=== PATIENT | female | born 1990 | race Native Hawaiian/Other Pacific Islander ===

== ENCOUNTER 2016-07-06 08:38 | Emergency (ER) | payer BC, OTHER ==
[~2016-07-06] VITALS: Ht 160 cm; Wt 56.7 kg
[2016-07-06 08:55] VITALS: BP 87/40; TEMP 97.8
[2016-07-06 09:34] LABS: PLATELET COUNT 202 K/uL (152-353)
[2016-07-06 09:54] LABS: POTASSIUM 3.3 mmol/L (3.6-5.2); SODIUM 136 mmol/L (136-145)
== END 2016-07-06 20:51 | disposition other institution (70) ==
LOC: ED 08:38
DX: R45.851 Suicidal ideations (principal); T50.902A Poisoning by unspecified drugs, medicaments and biological substances, intentional self-harm, initial encounter; Y92.89 Other specified places as the place of occurrence of the external cause
CPT/HCPCS: 80053; 80307; 80320; 80329; 81000; 81025; 85027; 93005; 96360; 96361; 99285; G0479

== ENCOUNTER → 2016-12-06 16:13 | Outpatient (CLI) | payer BC, OTHER | END | disposition home or self-care (01) | LOC: AMB 16:13 | DX: Z04.71 Encounter for examination and observation following alleged adult physical abuse (principal) ==

== ENCOUNTER 2018-01-05 11:00 | Outpatient (CLI) | payer BC | END 2018-01-05 20:28 | disposition home or self-care (01) | LOC: RAD 11:00 | DX: M54.89 Other dorsalgia (principal); M62.838 Other muscle spasm ==

== ENCOUNTER → 2018-02-11 15:44 | Outpatient (CLI) | payer BC | END | disposition home or self-care (01) | LOC: AMB 15:44 | DX: Z04.3 Encounter for examination and observation following other accident (principal); V59.9XXA Occupant (driver) (passenger) of pick-up truck or van injured in unspecified traffic accident, initial encounter; Y92.89 Other specified places as the place of occurrence of the external cause ==

== ENCOUNTER 2022-04-20 15:32 | Emergency (ER) | payer OTHER ==
[~2022-04-20] VITALS: Ht 160 cm; Wt 63.5 kg
[2022-04-20 15:43] VITALS: BP 107/68; TEMP 97.1
== END 2022-04-20 18:58 | disposition home or self-care (01) ==
LOC: ED 15:32
DX: M25.512 Pain in left shoulder (principal); M79.18 Myalgia, other site; X50.9XXA Other and unspecified overexertion or strenuous movements or postures, initial encounter; Y92.89 Other specified places as the place of occurrence of the external cause
CPT/HCPCS: 81025; 96372; 99283; J1100; J2175; J2550

== ENCOUNTER 2022-08-12 17:10 | Emergency (ER) | payer OTHER ==
[~2022-08-12] VITALS: Ht 160 cm; Wt 63.5 kg
[2022-08-12 17:25] VITALS: BP 112/66; TEMP 100.7
[2022-08-12 18:17] LABS: PLATELET COUNT 195 K/uL (152-353)
[2022-08-12 18:27] LABS: POTASSIUM 3.9 mmol/L (3.6-5.2)
== END 2022-08-12 19:00 | disposition home or self-care (01) ==
LOC: ED 17:10
PROVIDERS: Emergency Medicine Emergency Medical Services
DX: J10.1 Influenza due to other identified influenza virus with other respiratory manifestations (principal); R11.2 Nausea with vomiting, unspecified; Z20.822 Contact with and (suspected) exposure to COVID-19; F17.210 Nicotine dependence, cigarettes, uncomplicated
CPT/HCPCS: 80048; 81002; 85027; 87502; 87635; 96361; 96365; 96375; 99284; J0696; J2405; U0001

== ENCOUNTER 2022-08-14 14:11 | Emergency (ER) | payer OTHER ==
[~2022-08-14] VITALS: Ht 160 cm; Wt 68.0 kg
[2022-08-14 14:11] VITALS: BP 130/78; TEMP 98.9
== END 2022-08-14 15:38 ==
LOC: ED 14:11
DX: S40.012A Contusion of left shoulder, initial encounter (principal); S96.812A Strain of other specified muscles and tendons at ankle and foot level, left foot, initial encounter; Y35.813A Legal intervention involving manhandling, suspect injured, initial encounter; Y92.89 Other specified places as the place of occurrence of the external cause
CPT/HCPCS: 80307; 81025; 99283